=== PATIENT | male | born 1950 | race Caucasian/White ===

== ENCOUNTER → 2017-01-23 | Outpatient (REF) | payer OTHER | LOC: M LAB REF 16:34 | PROVIDERS: ATTEND Nurse Practitioner Family | DX: L72.3 Sebaceous cyst (principal) ==

== ENCOUNTER 2018-06-09 05:21 | Emergency (ER) | payer OTHER ==
[2018-06-09] MEDS: FAMOTIDINE 20 MG TAB PO (06:30)
[2018-06-09] MEDS: predniSONE 20 MG TAB PO (06:30)
== END 2018-06-09 06:32 | disposition home or self-care (01) ==
LOC: M ED 05:21
DX: L50.9 Urticaria, unspecified (principal); I10 Essential (primary) hypertension; Z79.82 Long term (current) use of aspirin; Z79.899 Other long term (current) drug therapy
CPT/HCPCS: 99283

== ENCOUNTER 2019-07-12 10:18 | Emergency (ER) | payer OTHER ==
[~2019-07-12] VITALS: Ht 175.3 cm; Wt 102.3 kg
[~2019-07-12 10:18] MED LIST changes: -TEARSOL10 OP; -VALT500T PO
--- NOTE | 2019-07-12 11:00 | REP ---
Clinical: Altered mental status. Possible cerebrovascular accident. Comparison: 09/10/2012 . Findings: Age-related atrophy and microvascular ischemic changes are appreciated. The ventricles and sulci are symmetric. Leblanc-white differentiation is maintained. There is no evidence for acute intracranial hemorrhage, mass/mass effect, pathology or infarction. No extra-axial fluid collection. Calvarium is intact. Paranasal sinuses and mastoid air cells are clear. Impression: Age related atrophy and microvascular ischemic changes. No acute intracranial hemorrhage, infarction, or mass/mass effect. Electronically Signed by Michele Toledo MD 07/12/2019 10:53 A
--- NOTE | 2019-07-12 11:06 | REP ---
Clinical: Acute cerebrovascular accident . Comparison: 02/23/2013 . Findings: The mediastinum and cardiac silhouette are stable and within normal limits for portable technique. The lung gordon demonstrate chronic-appearing changes without acute consolidation, effusion, or pneumothorax. Skeletal structures are intact. Impression: No acute cardiopulmonary process appreciated. Electronically Signed by Michele Toledo MD 07/12/2019 10:58 A
[2019-07-12 11:27] LABS: BASO % 0.4 % (0.0-1.0); EOS # 0.2 10^3/uL (0.0-0.5); EOS % 3.2 % (0.0-3.0); HEMATOCRIT 48.5 % (42.0-52.0); HEMOGLOBIN 16.2 g/dl (13.5-17.5); LYMPH # 1.8 10^3/uL (1.5-5.0); LYMPH % 24.2 % (24.0-44.0); MEAN CORPUSCULAR HEMOGLOBIN 31.2 pg (27.0-33.0); MEAN CORPUSCULAR HGB CONC 33.4 g/dl (32.0-36.5); MEAN CORPUSCULAR VOLUME 93.3 fl (80.0-96.0); MONO # 0.8 10^3/uL (0.0-0.8); MONO % 10.7 % (0.0-5.0); NEUTROPHILS # 4.5 10^3/uL (1.5-8.5); NEUTROPHILS % 61.1 % (36.0-66.0); PLATELET COUNT, AUTOMATED 209 10^3/uL (150-450); WHITE BLOOD COUNT 7.3 10^3/uL (4.0-10.0)
[2019-07-12 11:37] LABS: INR 0.97; PROTHROMBIN TIME 12.5 SECONDS (11.8-14.0)
[2019-07-12 11:38] LABS: PARTIAL THROMBOPLASTIN TIME 33.5 SECONDS (25.0-38.4)
[2019-07-12 12:04] LABS: CK-MB VALUE MASS 2.8 NG/ML (<3.6); CPK CREATINE PHOSPHOKINASE 245 U/L (39-308); MB/CK RELATIVE INDEX 1.14 (< OR =4); TROPONIN I < 0.02 NG/ML (< 0.10)
--- NOTE | 2019-07-12 14:37 | REP ---
MRI BRAIN WITHOUT CONTRAST: HISTORY: Left-sided facial droop with some elements of central findings. Comparison CT study is from earlier this date. TECHNIQUE: Axial and sagittal imaging planes are utilized for T1- and T2-weighted scans. Sequences include spin-echo, fast spin echo, FLAIR, and diffusion weighted sequences. MRI FINDINGS: Craniocervical junction and upper cervical cord are unremarkable. No bony calvarial lesion is appreciated. There is no MR evidence of paranasal sinus disease. No intraorbital abnormality is appreciated. No vascular abnormality is observed. There are minimal subcortical and periventricular white matter T2 hyperintensities in the frontal lobes consistent with small vessel changes. Diffusion weighted scans show no evidence to suggest acute ischemia. There is no evidence of intracranial hemorrhage, mass, infarct, or midline shift. IMPRESSION: No acute intracranial abnormality. Electronically Signed by Greg Rodriguez MD 07/12/2019 02:47 P
[2019-07-12] MEDS ORDERED: VALT500T PO (14:51)
[2019-07-12] MEDS ORDERED: PRED20TA PO (14:51)
[2019-07-12 14:54] VITALS: BP 158/80
[2019-07-12] MEDS ORDERED: TEARSOL10 OP (14:54)
[2019-07-12] MEDS ORDERED: valACYclovir HCL 500 MG TAB PO ONE (15:00)
[2019-07-12] MEDS ORDERED: predniSONE 20 MG TAB PO ONE (15:00)
--- NOTE | 2019-07-13 08:47 | ECGEPIP ---
[facility] - ED Test Date: 2019-07-12 Pat Name: ALECIA LOZANO Department: Room: - Gender: Male Back Maker: liz : [id number] Requested By: Spike Marr Order Number: [id number] Reading MD: Gulshan Tubbs Measurements Intervals Fabius Rate: 56 P: 57 ND: 167 QRS: 69 QRSD: 102 T: 61 QT: 430 QTc: 416 Interpretive Statements SINUS BRADYCARDIA NO PRIORS FOR COMPARISON Electronically Signed on 07-13-2019 8:46:59 EST by Gulshan Tubbs
[2019-07-15 14:07] LABS: Lyme Disease IgG Ab 18 kDa Ban Absent (.); Lyme Disease IgG Ab 23 kDa Ban Absent (.); Lyme Disease IgG Ab 28 kDa Ban Absent (.); Lyme Disease IgG Ab 30 kDa Ban Absent (.); Lyme Disease IgG Ab 39 kDa Ban Absent (.); Lyme Disease IgG Ab 41 kDa Ban Absent (.); Lyme Disease IgG Ab 45 kDa Ban Absent (.); Lyme Disease IgG Ab 58 kDa Ban Absent (.); Lyme Disease IgG Ab 66 kDa Ban Absent (.); Lyme Disease IgG Ab 93 kDa Ban Absent (.); Lyme Disease IgG West Blot Int Negative (.); Lyme Disease IgG/IgM Antibodie 1.03 ISR (0.00-0.90); Lyme Disease IgM Ab 23 kDa Ban Absent (.); Lyme Disease IgM Ab 39 kDa Ban Present (.); Lyme Disease IgM Ab 41 kDa Ban Absent (.); Lyme Disease IgM Ab Quantitati <0.80 index (0.00-0.79); Lyme Disease IgM West Blot Int Negative (.)
== END 2019-07-12 15:10 | disposition home or self-care (01) ==
LOC: M ED 10:18
DX: G51.0 Bell's palsy (principal); R00.1 Bradycardia, unspecified; Z79.82 Long term (current) use of aspirin; Z79.899 Other long term (current) drug therapy; Z88.0 Allergy status to penicillin

== ENCOUNTER → 2019-07-12 | Outpatient (CLI) | payer OTHER ==
[~2019-07-12] MED LIST: ASPI81CH33 PO; ATOR1TAB21; CARV12.5; LOSA50TA88; PEPC1TAB5 PO; PRED20TA PO; SERT50TA29; TEARSOL10 OP; TRIAMTERENE; VALT500T PO
[2019-07-12 11:44] LABS: BASO # 0.1 10^3/uL (0.0-0.2); BASO % 0.7 % (0.0-1.0); EOS # 0.3 10^3/uL (0.0-0.5); EOS % 3.4 % (0.0-3.0); HEMOGLOBIN 16.2 g/dl (13.5-17.5); LYMPH # 2.1 10^3/uL (1.5-5.0); LYMPH % 25.6 % (24.0-44.0); MEAN CORPUSCULAR HEMOGLOBIN 31.2 pg (27.0-33.0); MEAN CORPUSCULAR HGB CONC 33.8 g/dl (32.0-36.5); MEAN CORPUSCULAR VOLUME 92.3 fl (80.0-96.0); MONO # 0.9 10^3/uL (0.0-0.8); MONO % 10.6 % (0.0-5.0); NEUTROPHILS # 4.8 10^3/uL (1.5-8.5); NEUTROPHILS % 59.5 % (36.0-66.0); PLATELET COUNT, AUTOMATED 217 10^3/uL (150-450)
[2019-07-12 11:52] LABS: ALBUMIN 3.9 GM/DL (3.2-5.2); BILIRUBIN,TOTAL 1.4 MG/DL (0.2-1.0); CALCIUM LEVEL 9.5 MG/DL (8.8-10.2); CREATININE FOR GFR 1.35 MG/DL (0.70-1.30); GLOMERULAR FILTRATION RATE 55.8 (>49); POTASSIUM SERUM 3.6 MEQ/L (3.5-5.1); TOTAL PROTEIN 7.6 GM/DL (6.4-8.2)
[2019-07-12 12:03] LABS: INR 0.97; PROTHROMBIN TIME 12.6 SECONDS (11.8-14.0)
[2019-07-12 12:04] LABS: PARTIAL THROMBOPLASTIN TIME 33.7 SECONDS (25.0-38.4)
== END ==
LOC: M WUC 09:43
PROVIDERS: ATTEND Nurse Practitioner Family
DX: R29.810 Facial weakness (principal)

== ENCOUNTER → 2019-08-15 | Outpatient (REF) | payer OTHER ==
[~2019-08-15] MED LIST changes: +TEARSOL10 OP; +VALT500T PO
[2019-08-17 00:10] LABS: Lyme Disease IgG/IgM Antibodie <0.91 ISR (0.00-0.90); Lyme Disease IgM Ab Quantitati <0.80 index (0.00-0.79)
== END ==
LOC: M LABNEURO 09:55
PROVIDERS: ATTEND Psychiatry & Neurology Neurology
DX: G51.0 Bell's palsy (principal); A69.20 Lyme disease, unspecified

== ENCOUNTER → 2020-06-06 | Outpatient (CLI) | payer OTHER ==
--- NOTE | 2020-06-06 10:19 | REPVR ---
PROCEDURE INFORMATION: Exam: US Duplex Left Lower Extremity Veins, Limited Exam date and time: 06/06/2020 10:00 AM Age: 69 years old Clinical indication: Swelling (edema) of limb; Lower extremity, left; Additional info: Lt leg edema TECHNIQUE: Imaging protocol: Real-time Duplex ultrasound of the Left Lower Extremity with 2-D larkin scale, color Doppler flow and spectral waveform analysis with image documentation. Limited exam focused on the left lower extremity veins. COMPARISON: No relevant prior studies available. FINDINGS: Left deep veins: Unremarkable. The common femoral, femoral, proximal profunda femoral and popliteal veins are patent without thrombus. Normal Doppler waveforms. Normal compressibility and/or augmentation response. Left superficial veins: Unremarkable. Saphenofemoral junction is patent without thrombus. Soft tissues: Unremarkable. Other findings: The calf veins were not imaged on this exam. IMPRESSION: No evidence of deep venous thrombosis above the knee. Please note that the calf veins were not imaged on this exam. Electronically signed by: Luis Antonio Sanabria On 06/06/2020 10:18:46 AM
== END ==
LOC: M RAD 09:49
PROVIDERS: ATTEND Family Medicine
DX: R60.0 Localized edema (principal)

== ENCOUNTER → 2020-07-23 | Outpatient (CLI) | payer SELFPAY | LOC: M LABSMTC 17:45 | PROVIDERS: ATTEND Pediatrics | DX: Z11.59 Encounter for screening for other viral diseases (principal) ==

== ENCOUNTER → 2020-11-06 | Outpatient (CLI) | payer OTHER ==
--- NOTE | 2020-11-06 15:13 | REP ---
INDICATION: PAIN COMPARISON: None. TECHNIQUE: There are four views. FINDINGS: There is mild joint space narrowing of the PIP and DIP articulations and mild joint space narrowing of the index finger and middle finger MCP articulations. This may represent mild osteoarthritis. There is no fracture or dislocation. Mineralization is normal. Joint spaces are otherwise unremarkable. There are no calcifications or foreign bodies. IMPRESSION: Joint space narrowing as described, possibly early osteoarthritis. <Electronically signed by Negrito Mills > 11/06/20 [id number]
== END ==
LOC: M WUC 11:09
PROVIDERS: ATTEND Physician Assistant
DX: M25.541 Pain in joints of right hand (principal)

== ENCOUNTER → 2021-07-13 | Outpatient (REF) | payer OTHER ==
[~2021-07-13] MED LIST changes: +LOSA50TA28; -LOSA50TA88
== END ==
LOC: M LAB REF 21:30
PROVIDERS: ATTEND Physician Assistant Medical
DX: J02.9 Acute pharyngitis, unspecified (principal)

== ENCOUNTER → 2022-03-18 | Outpatient (REF) | payer OTHER | LOC: M LAB REF 12:07 | PROVIDERS: ATTEND Physician Assistant Medical | DX: R10.32 Left lower quadrant pain (principal) ==

== ENCOUNTER → 2022-03-19 | Outpatient (CLI) | payer OTHER ==
[~2022-03-19] MED LIST changes: +GASTROGRAFIN SOLUTION 30ML (Q9963) As Ordered ONE; +ISOVUE-370 76% 100ML VIAL As Ordered ONE
== END ==
LOC: M RAD 06:56
PROVIDERS: ATTEND Physician Assistant Medical
DX: R10.32 Left lower quadrant pain (principal); K76.0 Fatty (change of) liver, not elsewhere classified; J98.11 Atelectasis; K57.30 Diverticulosis of large intestine without perforation or abscess without bleeding; N40.0 Benign prostatic hyperplasia without lower urinary tract symptoms
CPT/HCPCS: 74177; Q9963; Q9967

== ENCOUNTER 2024-01-06 01:52 | Emergency (ER) | payer MEDICARE, OTHER ==
[~2024-01-06] VITALS: Ht 152.4 cm; Wt 101.6 kg
[~2024-01-06 01:52] MED LIST changes: -GASTROGRAFIN SOLUTION 30ML (Q9963) As Ordered ONE; -ISOVUE-370 76% 100ML VIAL As Ordered ONE
[2024-01-06 01:53] VITALS: TEMP 97.7
[2024-01-06 05:27] VITALS: BP 188/97; O2SAT 96
[2024-01-06] MEDS ORDERED: CYCL-707 PO (06:45)
[2024-01-06] MEDS ORDERED: LIDO5DIS41 TOP (06:45)
[2024-01-06] MEDS: LIDOCAINE 5% (LIDODERM) PATCH TD ONE (06:49)
[2024-01-06] MEDS: CYCLOBENZAPRINE 5MG TABLET PO ONE (06:49)
[2024-01-06] MEDS: IBUPROFEN 600MG TAB PO ONE (06:49)
== END 2024-01-06 06:55 | disposition home or self-care (01) ==
LOC: M ED 01:52
DX: S46.812A Strain of other muscles, fascia and tendons at shoulder and upper arm level, left arm, initial encounter (principal); X58.XXXA Exposure to other specified factors, initial encounter; Y92.9 Unspecified place or not applicable; Y93.89 Activity, other specified; Y99.9 Unspecified external cause status; I10 Essential (primary) hypertension; E78.00 Pure hypercholesterolemia, unspecified

== ENCOUNTER 2024-05-02 11:05 | Day surgery (SDC) | payer MEDICARE, OTHER ==
[~2024-05-02] VITALS: Ht 175.3 cm; Wt 99.5 kg
[~2024-05-02 11:05] MED LIST changes: +ATOR1TAB21 PO; +CARV12.5 PO; +CYCL-707 PO; +LIDO5DIS41 TOP; +LOSA50TA28 PO; +REFR0.5D8 OU; +SERT50TA29 PO; +TRIA37.5 PO
[2024-05-02] MEDS: NS 1,000 ML IV ONE (11:29)
[2024-05-02] MEDS ORDERED: fentaNYL 100 MCG/2 ML INJECTION As Ordered ONE (12:50)
[2024-05-02 13:19] VITALS: TEMP 97.5
[2024-05-02 13:35] VITALS: BP 108/56; O2SAT 95
[2024-05-02] MEDS ORDERED: propofoL 200 MG/20 ML VIAL As Ordered ONE (13:40)
== END 2024-05-02 13:43 | disposition home or self-care (01) ==
LOC: M OPP 11:05
PROVIDERS: ATTEND Internal Medicine Gastroenterology
DX: Z12.11 Encounter for screening for malignant neoplasm of colon (principal); D12.6 Benign neoplasm of colon, unspecified; K64.0 First degree hemorrhoids; K57.30 Diverticulosis of large intestine without perforation or abscess without bleeding; K29.70 Gastritis, unspecified, without bleeding; R12 Heartburn; G47.33 Obstructive sleep apnea (adult) (pediatric); Z99.89 Dependence on other enabling machines and devices; Z79.02 Long term (current) use of antithrombotics/antiplatelets; Z79.82 Long term (current) use of aspirin; Z79.899 Other long term (current) drug therapy; Z88.0 Allergy status to penicillin
CPT/HCPCS: 43239; 45385; 88305; J3010